=== PATIENT | male | born 1960 | race Caucasian/White ===

== ENCOUNTER → 2017-08-26 | Day surgery (SDC) | payer OTHER ==
[~2017-08-26] VITALS: Ht 172.7 cm; Wt 70.3 kg
--- NOTE | 2017-08-26 15:45 | Operative Report ---
Operative/Inv Procedure Report Surgery Date: 08/26/17 Name of Procedure: Excision of deep neck lipoma 5.3 cm Pre-Operative Diagnosis: Neck lipoma Post-Operative Diagnosis: Same, deep, 5.3 cm diameter Estimated Blood Loss: scant Surgeon/Perfume Compounder: Jo SINGH,Kamaljit De Leon Anesthesia: general endotracheal tube Operative/Procedure Note Note: Patient was positioned supine after successful induction of general anesthesia he was repositioned prone and his posterior neck and surrounding areas were clipped prepped and draped in usual sterile fashion. This mass was palpable in the midline leaning just to the left of the spinous process of C7 1 horizontal skin line was chosen right in the middle of this we have such a local anesthetic then made the incision with a 15 blade deepened to subcutaneous tissue and superficial fascia and then started to come around this multilobulated deep lipoma that went down below the fascia into the muscle removed in one piece pain care to include all the lobules without them use cautery for hemostasis care was taken to not injure any surrounding nerves or vessels and we measured this at 5.3 cm resulting space was irrigated checked for hemostasis and closed in layers using interrupted 3-0 Vicryl sutures deep and then a running subcuticular 4-0 Biosyn suture for skin itself, then mastasol Steri-Strips Telfa and Tegaderm. EBL minimal lap and sponge counts correct wound expectancy clean IV fluids crystalloid complications none patient tolerated the procedure well was extubated and returned to recovery room in satisfactory condition.
== END ==
LOC: STS 03:35
DX: D21.0 Benign neoplasm of connective and other soft tissue of head, face and neck (principal); M19.90 Unspecified osteoarthritis, unspecified site
CPT/HCPCS: 88304; J0690; J2250